=== PATIENT | female | born 1985 | race Caucasian/White ===

== ENCOUNTER 2021-07-29 10:34 | Emergency (ER) | payer OTHER ==
[~2021-07-29] VITALS: Ht 170.2 cm; Wt 85.9 kg
[2021-07-29 10:34] VITALS: BP 127/73
[2021-07-29] MEDS ORDERED: predniSONE 20 MG TAB PO ONE (12:15)
[2021-07-29] MEDS ORDERED: LIDOCAINE 4% CREAM 5GM (LMX4) TOP ONE (12:15)
[2021-07-29] MEDS ORDERED: ONDANSETRON 4 MG ORAL DISINTEGRATING TAB PO ONE (12:25)
[2021-07-29] MEDS ORDERED: ONDA4TAB6 PO (13:17)
[2021-07-29] MEDS ORDERED: ASPE16CR TOP (13:17)
[2021-07-29] MEDS ORDERED: PRED20TA PO (13:17)
== END 2021-07-29 13:56 | disposition home or self-care (01) ==
LOC: M ED 10:34
DX: H92.02 Otalgia, left ear (principal); M54.2 Cervicalgia; R11.0 Nausea
CPT/HCPCS: 99282; J7512; Q0162

== ENCOUNTER → 2022-07-17 | Outpatient (CLI) | payer OTHER ==
[~2022-07-17] MED LIST: ASPE16CR TOP; ONDA4TAB6 PO; PRED20TA PO
== END ==
LOC: M PLARAD 08:49
PROVIDERS: ATTEND Family Medicine
DX: H93.19 Tinnitus, unspecified ear (principal)

== ENCOUNTER 2023-11-18 09:32 | Day surgery (SDC) | payer OTHER ==
[~2023-11-18] VITALS: Ht 170.2 cm; Wt 98.1 kg
[~2023-11-18 09:32] MED LIST changes: -ASPE16CR TOP; +LIDO76.52 TOP; +OMEP40CA5 PO; +ONDA-282 PO; -ONDA4TAB6 PO
[2023-11-18] MEDS: NS 1,000 ML IV ONE (10:43)
[2023-11-18] MEDS ORDERED: fentaNYL 100 MCG/2 ML INJECTION As Ordered ONE (11:03)
[2023-11-18] MEDS ORDERED: LIDOCAINE 2% 100MG/5ML SDV (FOR ANES.) As Ordered ONE (11:03)
[2023-11-18] MEDS ORDERED: propofoL 500 MG/50 ML VIAL As Ordered ONE (11:03)
[2023-11-18 13:04] VITALS: TEMP 97.3
[2023-11-18 13:20] VITALS: BP 120/70; O2SAT 100
== END 2023-11-18 13:26 | disposition home or self-care (01) ==
LOC: M OPP 09:32
PROVIDERS: ATTEND Internal Medicine Gastroenterology
DX: R10.84 Generalized abdominal pain (principal); Z80.0 Family history of malignant neoplasm of digestive organs; D12.3 Benign neoplasm of transverse colon; K64.8 Other hemorrhoids; K59.00 Constipation, unspecified; R10.13 Epigastric pain; Z98.84 Bariatric surgery status; Z79.899 Other long term (current) drug therapy
CPT/HCPCS: 43239; 45385; 88305; J3010